=== PATIENT | female | born 1975 | race Caucasian/White ===

== ENCOUNTER → 2021-09-19 10:56 | Outpatient (BNVA) | payer MEDICAID, SELFPAY | PROVIDERS: PCP Nurse Practitioner; Referring Provider Nurse Practitioner; Visit Provider Internal Medicine | DX: I10 Essential (primary) hypertension (principal); R07.2 Precordial pain; F17.200 Nicotine dependence, unspecified, uncomplicated | CPT/HCPCS: 93005; 99202 ==